=== PATIENT | female | born 1985 | race Hispanic/Latino ===

== ENCOUNTER → 2017-05-15 | Emergency (ER) | payer BC ==
[~2017-05-15] VITALS: Ht 149.9 cm; Wt 68.0 kg
[~2017-05-15] MED LIST: KETOROLAC TROMETHAMINE 30 MG/ML VIAL IM ONE
== END | disposition home or self-care (01) ==
LOC: FSED 13:39
DX: S92.354A Nondisplaced fracture of fifth metatarsal bone, right foot, initial encounter for closed fracture (principal); S93.491A Sprain of other ligament of right ankle, initial encounter; S93.411A Sprain of calcaneofibular ligament of right ankle, initial encounter; W18.39XA Other fall on same level, initial encounter; Y92.008 Other place in unspecified non-institutional (private) residence as the place of occurrence of the external cause
CPT/HCPCS: 29515; 73610; 99284; J1885